=== PATIENT | female | born 1975 | race Caucasian/White ===

== ENCOUNTER 2018-12-20 20:21 | Inpatient (IN) | payer SELFPAY ==
[~2018-12-20] VITALS: Ht 167.6 cm; Wt 117.9 kg
[2018-12-21] MEDS ORDERED: SODIUM CHLORIDE 0.9% 1,000 ML IV ONE (00:31)
[2018-12-21] MEDS ORDERED: DIPHENHYDRAMINE 50MG/ML VIAL IV ONE (00:45)
[2018-12-21] MEDS ORDERED: METOCLOPRAMIDE HCL 10MG/2ML VIAL IV ONE (00:45)
[2018-12-21 00:48] LABS: BASOPHILS % 0.7 % (0.0-2.0); EOSINOPHILS % 6.7 % (0.0-5.0); HEMATOCRIT. 30.8 % (36.0-48.0); HEMOGLOBIN. 9.8 g/dL (12.0-16.0); LYMPHOCYTES % 17.7 % (20.0-50.0); MEAN CORPUSCULAR HEMOGLOBIN 22.9 pg (28.0-32.0); MEAN CORPUSCULAR VOLUME 72.1 fL (81.0-99.0); MEAN PLATELET VOLUME 7.7 fl (7.4-10.4); MONOCYTES % 8.1 % (2.0-8.0); NEUTROPHILS % 66.8 % (40.0-76.0); PLATELET 277 x1000/uL (130-400); RED BLOOD CELL COUNT 4.28 mill/uL (4.2-5.4); RED CELL DISTRIBUTION WIDTH 18.2 % (11.6-14.6)
[2018-12-21 00:54] LABS: CHLORIDE 106 mEq/L (98-107)
[2018-12-21] MEDS ORDERED: MORPHINE SULFATE 4 MG/ML CPJ (NOT FOR IM USE) IV SCH (03:45)
[2018-12-21] MEDS ORDERED: ONDANSETRON HCL 4MG/2ML INJ IV SCH (03:45)
[2018-12-21] MEDS ORDERED: TETRACAINE 0.5% OPHTH DROPS 4ML LEFTEYE ONE (05:30)
[2018-12-21] MEDS ORDERED: TIMOLOL MALEATE 0.5% OPHTH DROPS 5ML LEFTEYE STA (05:33)
[2018-12-21] MEDS ORDERED: ACETAZOLAMIDE SODIUM 500MG/VIAL IV ONE (05:45)
[2018-12-21 08:00] VITALS: BP 101/61
[2018-12-21 08:15] VITALS: BP 113/81
[2018-12-21 09:06] VITALS: BP 113/81
[2018-12-21] MEDS ORDERED: HYDR50CA PO (09:18)
[2018-12-21] MEDS ORDERED: DULO60CA44 PO (09:18)
[2018-12-21] MEDS ORDERED: KETOROLAC 30MG/ML VIAL IV PRN (10:00)
[2018-12-21] MEDS ORDERED: ACETAMINOPHEN 325MG TABLET PO PRN (10:00)
[2018-12-21] MEDS ORDERED: MAGNESIUM/ALUMINUM HYDROXIDE/SIMETHICONE 30ML UDC PO PRN (10:00)
[2018-12-21] MEDS ORDERED: DIPHENHYDRAMINE 50MG/ML VIAL IV PRN (10:00)
[2018-12-21] MEDS ORDERED: ONDANSETRON HCL 4MG/2ML INJ IV PRN (10:00)
[2018-12-21 12:00] VITALS: BP 132/88
[2018-12-21] MEDS ORDERED: SODIUM CHLORIDE 0.9% INJ 3ML FLUSH IVF SCH (14:00)
[2018-12-21 15:31] VITALS: BP 133/70
== END 2018-12-21 15:57 | disposition home or self-care (01) | DRG 54 ==
LOC: ER 20:21 → 6EST 12-21 05:40 → ENRESERV 12-21 07:30
PROVIDERS: ADMIT Internal Medicine; ATTEND Internal Medicine
DX: R51 Headache (principal); Z83.3 Family history of diabetes mellitus; Z98.891 History of uterine scar from previous surgery; Z98.51 Tubal ligation status
CPT/HCPCS: 36415; 83036; 93005; 99285; J1120; J1200; J1885; J2270; J2405; J2765; J7030